=== PATIENT | male | born 2000 | race Caucasian/White ===

== ENCOUNTER 2020-06-03 17:20 | Emergency (ER) | payer OTHER ==
[~2020-06-03] VITALS: Ht 180.3 cm; Wt 75.7 kg
--- NOTE | 2020-06-03 18:08 | NUR ---
PT TO ROOM FROM LOBBY AT THIS TIME.
--- NOTE | 2020-06-03 18:14 | NUR ---
TASK RN: THIS IS A 20 YO M W/ C/O RUQ ABD PAIN X1 WEEK. PT WAS SEEN AT [place] AND AN [facility] FOR SAME. PER PTS MOM PT WAS TO HAVE CT SCAN ON SATURDAY REF BY [facility] BUT PTS PAIN IS WORSENING. PT REPORTS NAUSEA, DENIES VOMITING. PT DENIES MEDICAL HX. PT RESTING ON GURNEY W/ CALL LIGHT IN REACH, SIDE RAILS UPX2 AND FAMILY AT BEDSIDE. AWAITING ED EVAL.
--- NOTE | 2020-06-03 18:30 | NUR ---
PIV STARTED, LABS DRAWN.
--- NOTE | 2020-06-03 18:45 | NUR ---
TASK RN: AT BEDSIDE.
[2020-06-03] MEDS ORDERED: SODIUM CHLORIDE FLUSH 10ML SYR IVF ONE (19:00)
[2020-06-03] MEDS ORDERED: ONDANSETRON 2MG/ML, 2ML IVPush ONE (19:00)
[2020-06-03] MEDS ORDERED: HYDROmorphone 2 MG/ML, 1ML IVPush PRN (19:00)
--- NOTE | 2020-06-03 19:03 | NUR ---
REPORT RECEIVED FROM LENA ARCHER
[2020-06-03] MEDS ORDERED: HYDROmorphone 2 MG/ML, 1ML ONE (19:11)
[2020-06-03] MEDS ORDERED: ONDANSETRON 2MG/ML, 2ML ONE (19:12)
[2020-06-03 19:20] LABS: ALANINE AMINOTRANSFERASE 67 U/L (12-78); ANION GAP 3 mmol/L (5-15); CALCIUM 9.4 mg/dL (8.5-10.1); CHLORIDE 106 mmol/L (98-107); CREATININE 0.94 mg/dL (0.7-1.3)
--- NOTE | 2020-06-03 19:20 | NUR ---
[facility] [place] [phone]
--- NOTE | 2020-06-03 19:20 | NUR ---
pt mediated per emar for abd pain, pt resting comfortably in gurney awaiting ct scan. mother at bedside
[2020-06-03 19:23] LABS: ALKALINE PHOSPHATASE 78 U/L (45-117); BILIRUBIN,TOTAL 0.5 mg/dL (0.2-1.0); TOTAL PROTEIN 7.5 g/dL (6.4-8.2)
[2020-06-03] MEDS ORDERED: OMNIPAQUE 350 MG/ML, 100ML BOTTLE ONE (19:30)
[2020-06-03 19:32] LABS: BASOPHILS % (AUTO) 0 % (0-1); EOSINOPHILS % (AUTO) 1 % (1-7); LYMPHOCYTES % (AUTO) 19 % (22-44); MEAN CORPUSCULAR HGB CONC 35.7 g/dL (33.2-36.2); MONOCYTES % (AUTO) 9 % (2-9); NEUTROPHILS % (AUTO) 70 % (42-75); PLATELET COUNT 217 x10^3/uL (130-400); RED BLOOD COUNT 4.55 x10^6/uL (4.38-5.82); RED CELL DISTRIBUTION WIDTH 12.3 % (9.4-14.8)
[2020-06-03 19:47] LABS: MD NO
[2020-06-03 20:07] LABS: MICROSCOPIC NOT IND
--- NOTE | 2020-06-03 20:16 | NUR ---
PT BACK FROM CT, REPORTS PAIN HAS DECREASED TO 1/10 AT REAST AND 3/10 WHEN MOVING.
[2020-06-03] MEDS ORDERED: PANTOPRAZOLE 40 MG IV ONE (20:57)
[2020-06-03] MEDS ORDERED: PANTOPRAZOLE 40 MG IV IVPush ONE (21:00)
--- NOTE | 2020-06-03 21:37 | NUR ---
PT VERBALIZES UNDERSTANDING OF IMAGING SHOWING ULCER AND IS ACCEPTING OF EDUCATION REGARDING MEDICATION MANAGEMENT, CHANGING DIET TO HELP SYMPTOMS, AND REDUCING INTAKE OF MOTRIN THAT PT TAKES FOR INJURED FINGER. PTS MOTHER APPEARS ANXIOUS AND STATES SHE DOES NOT BELIEVE AN ULCER IS THE APPROPRIATE RESULT AND IS CONCERED THAT 3 DIFFERENT DOCTORS HAVE TOLD THEM DIFFERENT THINGS AND PRESCRIBED SO MANY DIFFERENT MEDICATIONS. EDUCATED ON DIFFERENT MEDS PT HAS BEEN PRESCRIBED AND ON REDUCING MOTRIN INTAKE FOR ULCER PREVENTION AND HOW PPI MEDS TAKE TIME TO WORK. ALSO EXPLAINED HOW PT CAN GET RESULT OF IMAGING IF CHOOSING TO. PTS MOTHER ALSO ASKING IF PT SHOULD STILL GO TO [facility] FOR HYDA SCAN. ERP DR DANIEL AWARE OF CONCERNS AND WILL SPEAK WITH PT AND MOTHER.
[2020-06-03 22:11] VITALS: BP 125/75
== END 2020-06-03 22:14 | disposition home or self-care (01) ==
LOC: ED 20:04
DX: K25.3 Acute gastric ulcer without hemorrhage or perforation (principal); R10.13 Epigastric pain; R10.11 Right upper quadrant pain; R11.0 Nausea; R19.7 Diarrhea, unspecified
CPT/HCPCS: 36415; 74177; 80053; 81003; 83690; 85025; 96374; 96375; 99285; C9113; J1170; J2405; Q9967